=== PATIENT | female | born 1980 | race African-American/Black ===

== ENCOUNTER 2019-02-03 10:27 | Emergency (ER) | payer OTHER ==
[~2019-02-03] VITALS: Ht 172.7 cm; Wt 68.0 kg
[~2019-02-03 10:27] MED LIST: ACCUNEB SO1.25 MG/1; DOXYCYCLINE 10100 MG PO; FLAGYL500 MG PO; NAPROSYN500 MG PO; NOHOMEMEDICATIONS; NORCO 5-325 TA1 EACH PO; ONDANSETRON HCL4 M2 PO; OXYCODONE-ACET1 EACH PO; PERCOCET 5-3251 EACH PO; PERCOCET PO; ROBAXIN 750 MG750 M1 PO; TRINATE TABLET1 TAB PO; TYLENOL325 MG PO; VENTOLIN HFA 1818 GM INH; ZOFRAN4 MG PO; ZPAK PO
[2019-02-03 12:00] VITALS: BP 113/72
== END 2019-02-03 12:01 | disposition home or self-care (01) ==
LOC: ER 10:27
DX: J02.0 Streptococcal pharyngitis (principal); J45.909 Unspecified asthma, uncomplicated; Z90.49 Acquired absence of other specified parts of digestive tract; Z90.710 Acquired absence of both cervix and uterus